=== PATIENT | female | born 1970 | race Asian ===

== ENCOUNTER 2017-08-26 16:10 | Emergency (ER) | payer BC, OTHER ==
[2017-08-26] MEDS ORDERED: Ondansetron INJ* 2 MG/ML VIAL IV ONE (16:57)
[2017-08-26] MEDS ORDERED: Ketorolac INJ* 30 MG/ML 1 ML VIAL IV ONE (16:57)
[2017-08-26] MEDS ORDERED: Morphine INJ* 4 MG/ML 1 ML SYRINGE (NEW SYRINGE VERSION) IV PRN (16:57)
[2017-08-26] MEDS ORDERED: NS 0.9% 1000 ML* 1,000 ML IV ONE (16:57)
[2017-08-26 17:20] LABS: Urine Appearance Cloudy; Urine Blood Negative (Negative); Urine Color Yellow; Urine Ketones 2+ (Negative); Urine Protein 1+(30 mg/dL) (Negative); Urine Specific Gravity 1.029 (1.010-1.030); Urine Urobilinogen Negative (Negative)
[2017-08-26 17:23] LABS: ABS Basophils 0 10^3/ul (0-0.2); ABS Eosinophils 0 10^3/ul (0-0.6); ABS Lymphocytes 0.6 10^3/ul (1.0-4.8); ABS Monocytes 0.4 10^3/ul (0-0.8); ABS Nucleated RBC 0 10^3/ul; Eosinophil % 0.1 % (0-6); Hematocrit 39 % (35-47); Hemoglobin 12.4 g/dl (12.0-16.0); Lymphocyte % 6.2 % (25-47); Mean Corpuscular HGB Conc 32 g/dl (31-36); Mean Corpuscular Hemoglobin 28 pg (27-31); Mean Corpuscular Volume 85 fL (80-97); Mean Platelet Volume 8.9 um3 (7.4-10.4); Nucleated Red Blood Cells % 0; Platelet Count 218 10^3/ul (150-450); Red Blood Count 4.52 10^6/ul (4.0-5.4); Red Cell Distribution Width 14 % (10.5-15); White Blood Count 8.9 10^3/ul (3.5-10.8)
--- NOTE | 2017-08-26 17:49 | RAD ---
INDICATION: LEFT side flank pain; difficulty urinating. COMPARISON: December 22, 2013 CT TECHNIQUE: Multidetector CT images were obtained from the lung bases to the ischial tuberosities. Evaluation of the viscera is limited without IV contrast. Multiplanar reformation. REPORT: Unremarkable visualized inferior thorax. Unremarkable liver, gallbladder, pancreas, spleen. Negative for CT abnormality of the upper GI, small bowel, appendix, colon. Small volume of free fluid in the pelvis. Negative for free air. Negative for hernias. Normal adrenal glands. Unremarkable RIGHT kidney. 0.7 cm calyceal stone lower pole LEFT kidney. Moderate LEFT hydronephrosis is traced to a 2 mm ureterovesicular junction stone new compared with the prior exam. Multiple pelvic phleboliths noted. Largely decompressed urinary bladder. Unremarkable anteverted uterus and RIGHT adnexal region. Suggestion of a 1.5 cm water density follicular cyst at the LEFT ovary. Negative for lymphadenopathy. Normal diameter abdominal aorta and iliac arteries. Physiologic distention of the IVC. Negative for suspicious osseous lesions. IMPRESSION: LEFT urolithiasis with dominant 0.7 cm calyceal stone at the lower pole increase in size over the prior exam. Moderate LEFT hydronephrosis is traced to a 2 mm ureterovesicular junction stone.
[2017-08-26] MEDS ORDERED: Tamsulosin CAP* 0.4 MG PO ONE (18:50)
[2017-08-26] MEDS ORDERED: oxyCODONE/Acetamin 5/325 MG* TAB PO ONE (18:57)
[2017-08-26 19:31] VITALS: BP 107/60
--- NOTE | 2017-09-04 23:17 | ED ---
Merced Isabel Edward, scribed for Lloyd Fragoso on 08/26/17 at 1638 . GI/ HPI - HPI Summary HPI Summary: 47 y/o female presents to the ED c/o gradual onset, severe L side flank pain starting this morning. Pt was seen at Urgent Care prior to coming to the ED. Pt states at Urgent Care there was blood found in her urine. Associated sx: diaphoresis and hot/cold flashes this morning, urinary urgency. - History of Current Complaint Chief Complaint: EDFlankPain Time Seen by Provider: 08/26/17 16:34 Stated Complaint: FLANK PAIN Hx Obtained From: Patient Onset/Duration: Started Hours Ago, Still Present Timing: Lasting Hours Severity: Severe Current Severity: Severe Pain Intensity: 7 Location of Pain: Flank - L Associated Signs and Symptoms: Positive: Diaphoresis, Flank Pain, Chills - hot/ cold flashes, Other: - urinary urgency - Allergy/Home Medications Allergies/Adverse Reactions: Allergies Allergy/AdvReac Type Severity Reaction Status Date / Time amoxicillin Allergy Itching Verified 08/26/17 16:24 PMH/Surg Hx/FS Hx/Imm Hx Previously Healthy: No Endocrine/Hematology History: Denies: Hx Diabetes Cardiovascular History: Denies: Hx Congestive Heart Failure, Hx Hypertension GI History: Reports: Other GI Disorders - diverticulitis and current issues History: Reports: Other Problems/Disorders - pt had frequent urination 12/08 and started feeling sick 12/09 Neurological History: Reports: Hx Headaches Infectious Disease History: No Infectious Disease History: Denies: Traveled Outside the [place] in Last 30 Days - Social History Alcohol Use: None Hx Substance Use: No Substance Use Type: Reports: None Hx Tobacco Use: No Smoking Status (MU): Never Smoked Tobacco Review of Systems Positive: Chills - hot/cold flashes, Skin Diaphoresis Eyes: Negative ENT: Negative Cardiovascular: Negative Respiratory: Negative Gastrointestinal: Negative Positive: flank pain, urgency Musculoskeletal: Negative Skin: Negative Neurological: Negative Psychological: Normal All Other Systems Reviewed And Are Negative: Yes Physical Exam - Summary Physical Exam Summary: Appearance: Well appearing, no pain distress Skin: warm, dry, reflects adequate perfusion Head/face: normal Eyes: EOMI, MERT ENT: normal Neck: supple, non-tender Respiratory: CTA, breath sounds present Cardiovascular: RRR, pulses symmetrical Abdomen: Soft, tenderness at LUQ and LLQ. Bowel: present Musculoskeletal: normal, strength/ROM intact Neuro: normal, sensory motor intact, A&Ox3 Triage Information Reviewed: Yes Vital Signs On Initial Exam: Initial Vitals Temp Pulse Resp BP Pulse Ox 97.8 F 74 19 100 08/26/17 16:12 08/26/17 16:12 08/26/17 16:12 08/26/17 16:12 08/26/17 16:12 Vital Signs Reviewed: Yes Diagnostics - Vital Signs Vital Signs Temp Pulse Resp BP Pulse Ox 08/26/17 16:12 97.8 F 74 100 - Laboratory Lab Results: Lab Results 08/26/17 08/26/17 08/26/17 Range/Units 17:05 17:05 17:05 WBC 8.9 (3.5-10.8) 10^3/ul RBC 4.52 (4.0-5.4) 10^6/ul Hgb 12.4 (12.0-16.0) g/dl Hct 39 (35-47) % MCV 85 (80-97) fL MCH 28 (27-31) pg MCHC 32 (31-36) g/dl RDW 14 (10.5-15) % Plt Count 218 (150-450) 10^3/ul MPV 8.9 (7.4-10.4) um3 Neut % (Auto) 89.5 H (38-83) % Lymph % (Auto) 6.2 L (25-47) % [place] % (Auto) 4.0 (0-7) % Eos % (Auto) 0.1 (0-6) % Baso % (Auto) 0.2 (0-2) % Absolute Neuts (auto) 8.0 H (1.5-7.7) 10^3/ul Absolute Lymphs (auto) 0.6 L (1.0-4.8) 10^3/ul Absolute Monos (auto) 0.4 (0-0.8) 10^3/ul Absolute Eos (auto) 0 (0-0.6) 10^3/ul Absolute Basos (auto) 0 (0-0.2) 10^3/ul Absolute Nucleated RBC 0 10^3/ul Nucleated RBC % 0 Sodium 135 (133-145) mmol/L Potassium 4.1 (3.5-5.0) mmol/L Chloride 103 (101-111) mmol/L Carbon Dioxide 25 (22-32) mmol/L Anion Gap 7 (2-11) mmol/L BUN 14 (6-24) mg/dL Creatinine 1.03 H (0.51-0.95) mg/dL Est GFR ( Amer) 73.2 (>60) Est GFR (Non-Af Amer) 57.0 (>60) BUN/Creatinine Ratio 13.6 (8-20) Glucose 94 (70-100) mg/dL Calcium 9.3 (8.6-10.3) mg/dL Total Bilirubin 0.70 (0.2-1.0) mg/dL AST 20 (13-39) U/L ALT 10 (7-52) U/L Alkaline Phosphatase 59 (34-104) U/L Total Protein 7.1 (6.4-8.9) g/dL Albumin 4.0 (3.2-5.2) g/dL Globulin 3.1 (2-4) g/dL Albumin/Globulin Ratio 1.3 (1-3) Lipase < 10 L (11.0-82.0) U/L Beta HCG, Quant < 0.60 mIU/mL Urine Color Yellow Urine Appearance Cloudy Urine pH 5.0 (5-9) Ur Specific [place] 1.029 (1.010-1.030) Urine Protein 1+(30 mg/dl) A (Negative) Urine Ketones 2+ A (Negative) Urine Blood Negative (Negative) Urine Nitrate Negative (Negative) Urine Bilirubin Negative (Negative) Urine Urobilinogen Negative (Negative) Ur Leukocyte Esterase 2+ A (Negative) Urine WBC (Auto) Trace(0-5/hpf) (Absent) Urine RBC (Auto) Absent (Absent) Ur Squamous Epith Cells Present A (Absent) Urine Bacteria Absent (Absent) Urine Glucose Negative (Negative) Urine Ascorbic Acid * A (Negative) Result Diagrams: 08/26/17 17:05 08/26/17 17:05 Lab Statement: Any lab studies that have been ordered have been reviewed, and results considered in the medical decision making process. - CT ABD/PEL CT CT Interpretation: Positive (See Comments) - LEFT urolithiasis with dominant 0.7 cm calyceal stone at the lower pole increase in size over the prior exam. Moderate LEFT hydronephrosis is traced to a 2 mm ureterovesicular junction stone. CT Interpretation Completed By: Radiologist Re-Evaluation - Re-Evaluation 1 Re-Evaluation Time: 18:55 Comment: Discuss CT results, plan of care GIGU Course/Dx - Course Assessment/Plan: 47 y/o female presents to the ED c/o gradual onset, severe L side flank pain starting this morning. Pt was seen at Urgent Care prior to coming to the ED. Pt states at Urgent Care there was blood found in her urine. Associated sx: diaphoresis and hot/cold flashes this morning, urinary urgency. ABD/PEL CT SHOWS LEFT urolithiasis with dominant 0.7 cm calyceal stone at the lower pole increase in size over the prior exam. Moderate LEFT hydronephrosis is traced to a 2 mm ureterovesicular junction stone. Pt will be d/c home with f/ u with Dr. Nunez in 2 days. Pt agrees to this plan. - Diagnoses Differential Diagnoses - Female: Renal Calculi, Renal Colic, Urinary Tract Infection Provider Diagnoses: Renal calculi Discharge - Sign-Out/Discharge Documenting (check all that apply): Discharge - Discharge Plan Condition: Stable Disposition: HOME Prescriptions: Oxycodone HCl/Acetaminophen [Percocet] 1 tab PO TID #20 tab MDD 3 Tamsulosin HCl [Flomax] 0.4 mg PO ONCE #15 cap.er.24h MDD 1 Patient Education Materials: Kidney Stones (ED) Forms: *Work Release Referrals: Lg Nunez MD [Medical Doctor] - 2 Days (PLEASE F/U IN 2 DAYS) - Billing Disposition and Condition Condition: STABLE Disposition: HOME The documentation as recorded by the Merced padron Edward accurately reflects the service I personally performed and the decisions made by , Lloyd Fragoso.
== END 2017-08-26 19:29 | disposition home or self-care (01) ==
LOC: ED 16:10
DX: N13.2 Hydronephrosis with renal and ureteral calculous obstruction (principal); R61 Generalized hyperhidrosis; R39.15 Urgency of urination; Z32.02 Encounter for pregnancy test, result negative; Z88.0 Allergy status to penicillin
CPT/HCPCS: 36415; 74176; 80053; 81003; 81015; 83690; 84702; 85025; 87086; 96374; 96375; 99283; A9270-GY; J1885; J2270; J2405

== ENCOUNTER 2017-09-07 15:00 | Day surgery (SDC) | payer BC ==
--- NOTE | 2017-09-06 21:42 | HP ---
AMENDED REPORT TO CORRECT DATE OF ADMISSION CC: Dr. Gibbs * ADMITTING HISTORY AND PHYSICAL: DATE OF ADMISSION: 09/07/17 ADMITTING DIAGNOSES: 1. Calculus, left distal ureter. 2. Left renal calculus. 3. Left hydronephrosis. PLANNED PROCEDURE: Left ureteroscopy, possible laser and stent insertion (to be followed in near future by lithotripsy of left renal calculus). SURGEON: Dr. Nunez. HISTORY OF PRESENT ILLNESS: Jalyn Hagan is a 47-year-old lady, who had originally been evaluated in the emergency room 8 or 9 days ago for left flank pain and nausea. She was noted to have a small calculus in the left distal ureter and a larger calculus in the left kidney. She had initially been placed on Flomax and has been followed in my office, including most recently on when an ultrasound revealed a persistent 4-mm calculus in the left distal ureter with mild left hydronephrosis and an 8-mm calculus in the left kidney. I suggested that she wait to see if she could pass the small left ureteral calculus, but she had not been able to pass it and would now like to have treatment of the same. In addition, she will require lithotripsy for the larger renal calculus in the near future. PAST MEDICAL HISTORY: Unremarkable. PAST SURGICAL HISTORY: Unremarkable. MEDICATIONS: On admission, none. ALLERGIES: PENICILLIN (hives and swelling). FAMILY HISTORY: Her son also has kidney stones. SOCIAL HISTORY: Smoking history, nonsmoker. REVIEW OF SYSTEMS: She is otherwise in excellent health. There is no history of diabetes mellitus or any other major systemic illness. PHYSICAL EXAMINATION GENERAL: Reveals a pleasant healthy appearing middle-aged lady. VITAL SIGNS: Blood pressure is 100/64, pulse 83 per minute and regular, oxygen saturation 94% on room air, temperature 96. LUNGS: Clear bilaterally. CARDIOVASCULAR: Regular rate and rhythm. S1, S2. ABDOMEN: Soft with mild flank tenderness. IMPRESSION: A 47-year-old lady with a small persistent calculus in the left distal ureter with mild left hydronephrosis and a larger calculus in the left kidney. PLAN: Left ureteroscopy, possible laser and stent insertion, to be followed in the near future by lithotripsy of the left renal calculus. I have explained to her that if she is able to pass the left ureteral calculus, then I would bring her in later on just for the lithotripsy of the left renal calculus. [id number]/[facility] #: [id number] CASE
[2017-09-07] MEDS ORDERED: Iohexol 180 (CONTRAST) 10 ML SDV IV ONE (15:51)
[2017-09-07] MEDS ORDERED: NS 0.9% IVPB ONE (16:15)
[2017-09-07] MEDS ORDERED: GENTAMICIN ADULT IVPB ONE (16:15)
--- NOTE | 2017-09-07 18:15 | RAD ---
INDICATION: Stent insertion COMPARISON: None FINDINGS: 6 seconds of fluoroscopy were provided for the urology department. Fluoroscopic spot imaging of the abdomen were obtained for operative control and show a retrograde examination culminating in placement of a left ureteral stent in expected position . CPT II Codes: G9500 (fluoro time doc)
[2017-09-07 19:08] VITALS: BP 108/75
--- NOTE | 2017-09-08 02:01 | OP ---
CC: Dr. Gibbs * DATE OF OPERATION: 09/07/17 - [facility] DATE OF : 66 SURGEON: Lg Nunez MD ANESTHESIOLOGIST: Dr. Rao. ANESTHESIA: General. PRE-OP DIAGNOSES: 1. Calculus, left ureter. 2. Left renal calculus. POST-OP DIAGNOSES: 1. Calculus, left ureter. 2. Left renal calculus. OPERATIVE PROCEDURE: Cystoscopy, left retrograde pyelogram, left ureteroscopy and stone extraction and left stent insertion. COMPLICATIONS: None. STENT USED: A 6-Moldovan stent, left ureter. POSTOPERATIVE CONDITION: Stable. OPERATIVE FINDINGS: 1. A 3 to 4 mm calculus impacted at left ureterovesical junction with surrounding edema and inflammation. 2. Left renal calculus (to be treated with shockwave lithotripsy next weekend). INDICATIONS: Jalyn Hagan is a 47-year-old lady who was evaluated for left ureteral and left renal calculi. She is being brought in for left ureteroscopy to be followed in the near future by lithotripsy. DESCRIPTION OF PROCEDURE: After induction of general anesthesia, the patient was placed in dorsal lithotomy position. Sequential compression devices were in place and functioning. Urethral stenosis was noted on initial evaluation. The bladder was then entered and examined. Edema was noted surrounding the left orifice. The remainder of the bladder was unremarkable. A guidewire was introduced into the left ureter. A 6-Moldovan semirigid ureteroscope was introduced after the initial retrograde pyelogram and a 3 to 4 mm calculus was noted to be impacted with surrounding inflammatory response. Using a 3-pronged grasper, this was engaged and retrieved. Once it was removed into the bladder, it partially fragmented and all of the fragments were removed. The ureteroscope was again readvanced into the ureter to make sure there were no additional stones or fragments and none were noted. A 6-Moldovan stent was introduced and positioned under fluoroscopy with good proximal and distal positioning obtained. The bladder was emptied. The patient tolerated the procedure satisfactorily and was transferred back to the recovery area in stable condition. She is scheduled to come back 09/10/17 for lithotripsy for the left renal calculus. [id number]/[facility] #: [id number] MTDD
== END 2017-09-07 19:15 | disposition home or self-care (01) ==
LOC: OR 15:00
PROVIDERS: ATTEND Urology
DX: N13.2 Hydronephrosis with renal and ureteral calculous obstruction (principal); J30.2 Other seasonal allergic rhinitis; K21.9 Gastro-esophageal reflux disease without esophagitis
CPT/HCPCS: 74420; 81025; 82365; 88300; C1876; J1580

== ENCOUNTER 2017-09-10 12:11 | Day surgery (SDC) | payer BC ==
[~2017-09-10 12:11] MED LIST: Buffered Lidocaine 0.9% SYRIN* 5 ML/SYR SYRINGE INTRADERM ONE; DiMENhydriNATE IV* 50 MG/ML VIAL IV PUSH PRN; Famotidine IV* 10 MG/ML 2 ML (20 mg) IV ONE; Morphine INJ* 2 MG/ML 1 ML CARPUJECT IV PRN; Naloxone* 0.4 MG/ML 1 ML VIAL IV PRN; PROCHLORPERAZINE INJ 5 MG/ML 2 ML VIAL IV PRN; Scopolamine 1.5 mg* PATCH TRANSDERM PRN; fentaNYL* 50 MCG/ML 2 ML VIAL (100 MCG VIAL) IV PRN; oxyCODONE/Acetamin 5/325 MG* TAB PO PRN
[2017-09-10] MEDS ORDERED: Levofloxacin 500 MG IVPREMIX(* 500 MG/100 ML BAG IVPB ONE (13:25)
[2017-09-10] MEDS ORDERED: Buffered Lidocaine 0.9% SYRIN* 5 ML/SYR SYRINGE ONE (13:26)
[2017-09-10] MEDS ORDERED: Famotidine IV* 10 MG/ML 2 ML (20 mg) ONE (13:28)
[2017-09-10] MEDS ORDERED: fentaNYL* 50 MCG/ML 2 ML VIAL (100 MCG VIAL) ONE (14:19)
[2017-09-10] MEDS ORDERED: Midazolam* 1 MG/ML 5 ML VIAL (5 MG) ONE (14:19)
[2017-09-10] MEDS ORDERED: Furosemide IV* 10 MG/ML 2 ML VIAL (20 MG) ONE (15:24)
[2017-09-10] MEDS ORDERED: Lidocaine 2% PF * 5 ML VIAL ONE (15:25)
[2017-09-10] MEDS ORDERED: Dexamethasone IV* 4 MG/ML 1 ML (4 MG) ONE (15:39)
[2017-09-10] MEDS ORDERED: Propofol* 10 MG/ML 20 ML BTL IV PUSH ONE (15:39)
[2017-09-10] MEDS ORDERED: Ondansetron INJ* 2 MG/ML VIAL ONE (15:39)
--- NOTE | 2017-09-10 15:40 | RAD ---
HISTORY: Shockwave lithotripsy COMPARISONS: August 26, 2017 VIEWS: Frontal views of the abdomen. FINDINGS: BOWEL: There is a nonspecific bowel gas pattern, with nondilated small bowel gas noted. CALCULI: The left ureteral stent is noted. Again noted is a 0.7 cm calculus overlying the left renal proportional. There is a small calculus of the left hemipelvis corresponding to the UVJ stone noted on the previous CT examination. BONES AND SOFT TISSUES: There are no osseous abnormalities. OTHER FINDINGS: The lung bases are clear. There is no subphrenic gas. IMPRESSION: LEFT URETERAL STENT WITH LEFT NEPHROLITHIASIS.
[2017-09-10 16:40] VITALS: BP 108/77
--- NOTE | 2017-09-11 04:06 | OP ---
CC: Dr. Abhijeet Gibbs * DATE OF OPERATION: 09/10/17 - [facility] DATE OF : 66 SURGEON: Lg Nunez MD ANESTHESIOLOGIST: Dr. Kasper. ANESTHESIA: General. PRE-OP DIAGNOSIS: Left renal calculus. POST-OP DIAGNOSIS: Left renal calculus. OPERATIVE PROCEDURE: Shockwave lithotripsy, left renal calculus. COMPLICATIONS: None. POSTOPERATIVE CONDITION: Stable. INDICATIONS: Jalyn Hagan is a 47-year-old lady who had previously undergone left ureteroscopy and stone extraction for an obstructing calculus in the left distal ureter. She was noted to have calculus in the left kidney and is now being brought in for shockwave lithotripsy of the same. DESCRIPTION OF PROCEDURE: After induction of general anesthesia, the patient was placed on lithotripsy table in supine position. The calculus in the lower pole of the left kidney was localized using fluoroscopy and shockwave lithotripsy was commenced at a rate of 90 shocks per minute. After the initial 300 shocks, lithotripsy was interrupted in an effort to minimize any potential trauma to the kidney. Lithotripsy was then resumed a few minutes later and intermittent fluoroscopy revealed good localization and fragmentation. A total of 1200 shocks were administered. The patient tolerated the procedure satisfactorily and was transferred back to the recovery area in stable condition. [id number]/[facility] #: [id number] MTDD
[2017-09-13] MEDS ORDERED: Scopolamine PATCH Remove* 1 NOTE MISC PATCH OFF ONE (06:13)
== END 2017-09-10 16:54 | disposition home or self-care (01) ==
LOC: OR 12:11
PROVIDERS: ATTEND Urology
DX: N20.0 Calculus of kidney (principal)
CPT/HCPCS: 74018; 81025; J1100; J1940; J1956; J2250; J2405; J2704; J3010